=== PATIENT | male | born 1940 | race Caucasian/White ===

== ENCOUNTER 2016-07-26 10:09 | Emergency (ER) | payer MEDICARE ==
[~2016-07-26] VITALS: Ht 190.5 cm; Wt 111.1 kg
[2016-07-26 10:46] LABS: HEMOGLOBIN 14.9 g/dL (14.1-18.0); LYMPH # 1.8 K/mm3 (0.7-4.5); LYMPH % 20.3 % (10-50)
[2016-07-26 10:47] LABS: URINE BILIRUBIN - DIPSTICK NEGATIVE (NEG); URINE BLOOD 2+ (NEG)
[2016-07-26 10:50] LABS: URINE SQUAMOUS CELLS OCC #/hpf (OCC)
--- NOTE | 2016-07-26 11:09 | Emergency Room Report ---
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 N Clinical Suspician of Infection? N Mental Status: 1 - Regular (Normal Baseline) Sepsis Risk:Low Sepsis Risk Have you (or family members/close friends) recently traveled outside the [place]? N If Yes, where/when: Have you had exposure to infectious disease within the past month? N TB? Other? Specify: Comment The patient complains of pain in his RIGHT lower lumbar area for one week. No injury recalled. The pain increases with movements. Sometimes he wakes up completely pain-free but pain will increase throughout the day. No radiation. No numbness or weakness. No urination symptoms. No fever. No abdominal pain or vomiting. He has a history of kidney stones. The last was 3 years ago and it sounds as if he had lithotripsy. He is taking ibuprofen which does help. ALLERGIES Coded Allergies: No Known Allergies (07/26/16) History Medical History General CAD? No Angina: No DE: No Hypertension? Yes Hyperlipidemia? No CHF? No DVT? No PE? No COPD? No Asthma? No Anemia? No GERD? No Gastric ulcers? No GI Bleed? No Hernia? No Thyroid Problems? No Hypothyroidism? No CVA? No Seizures? No Diabetes? No Renal Insuffiency? No End Stage Renal Disease? No UTI? No Stones? Yes BPH? No GB Disease: No Nephritic Syndrome? No Asplenia? No Hepatitis? No Sickle Cell Disease? No Arthritis? No Migraines? No Cataracts? No Glaucoma? No MRSA? No HIV? No TB? No Anxiety? No Depression? No Cancer? 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 Musculoskeletal back pain Psychiatric/Neurological denies numbness, denies weakness Physical Exam Vital Signs Vital Signs Date Time Temp Pulse Resp B/P Pulse O2 O2 Flow FiO2 Ox Delivery Rate 07/26 1139 76 22 132/85 96 07/26 1031 97.8 77 22 145/79 98 07/26 1024 97.8 77 22 145/79 98 General Appearance normal appearance, WD/WN Eye Exam - bilateral eye normal exam, bilateral eye PERRL, bilateral eye EOMI Ear, Nose, Throat hearing grossly normal, normal ENT inspection Neck normal inspection, non-tender, supple, full range of motion Respiratory Status Yes: trachea midline, chest symmetrical, non tender chest. No: respiratory distress. Lung Sounds bilateral: normal breath sounds, lungs clear. 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 No Comment Patient declines pain medication Results/Orders Laboratory Tests 07/26/16 1035: Sodium 139, Potassium 3.7, Chloride 102, Carbon Dioxide 32, BUN 15, Creatinine 0.8, Estimated Creat Clear 127, Estimated GFR (MDRD) 94, Glucose 94, Calcium 8.5 , Total Bilirubin 0.5, AST 10 L, ALT 19, Alkaline Phosphatase 76, Total Protein 6.8, Albumin 3.3 L, Globulin 3.5 H, Albumin/Globulin Ratio 0.9 L, Amylase 40, Lipase 236, WBC 8.7, RBC 4.60, Hgb 14.9, Hct 43.7, MCV 94.9, RDW 12.9, Plt Count 323, MPV 5.7 L, Gran % 69.4, Gran # 6.1, Lymphocytes % 20.3, Monocytes % 7.2, Eosinophils % 2.7, Basophils % 0.4, Lymphocytes # 1.8, Monocytes # 0.6, Eosinophils # 0.2, Basophils # 0.0, PUBS MCHC 34.1, MCH 32.4 H 07/26/16 0600: Urine Color YELLOW, Urine Appearance CLEAR, Urine pH 6.0, Ur Specific [place] 1.010, Urine Protein NEGATIVE, Urine Ketones NEGATIVE, Urine Blood 2+ H, Urine Nitrate NEGATIVE, Urine Bilirubin NEGATIVE, Urine Urobilinogen 1.0, Ur Leukocyte Esterase NEGATIVE, Urine RBC 3-5, Ur Squamous Epith Cells OCC, Urine Bacteria 1+ , Urine Glucose NEGATIVE Current Medication Orders Sig/Gloria Start time Last Medication Dose Route Stop Time Status Admin Sodium Chloride 10 ML PRN PRN 07/26 1045 AC IV 07/27 1035 Sodium Chloride 10 ML PRN PRN 07/26 1045 AC IV 07/27 1036 Orders Procedure Date/time Status DIET-NOTHING BY MOUTH 07/[address] ABD/PELVIS REQ 07/26 1036 Complete IV SALINE LOCK 07/26 1036 Active URINALYSIS/COMPLETE 07/26 1036 Complete LIPASE 07/26 1036 Complete CBC WITH AUTO DIFF 07/26 1036 Complete CHEM 12 PROFILE 07/26 1036 Complete AMYLASE 07/26 1036 Complete IV SALINE LOCK 07/26 1035 Active XRAY/CT/US XRAY/CT/US CT abdomen, pelvis Comment CT scan interpreted by radiologist: No acute intra-abdominal or pelvic pathology. Nonobstructing LEFT renal calculus with stranding of the perinephric renal fat bilaterally which is nonspecific along with suspected bilateral renal cysts. Probable hepatic cyst. Thickening of the urinary bladder, nonspecific. Departure Departure Disposition DC Home or Self Care(routine) Clinical Impression Primary Impression: Low back pain Qualifiers: Chronicity: acute Back pain laterality: right Sciatica presence: without sciatica Qualified Code: M54.5 - Low back pain Condition STABLE Referrals ELDER LAU APRN (Family) Patient Instructions DI for Low Back Pain Additional Instructions Continue ibuprofen Additional instructions for BACK PAIN: See your physician as soon as possible for further evaluation. Return immediately if back pain becomes intolerable, or if fever, numbness or weakness of your legs, loss of control of your bowels or bladder. ED Critical Care Critical Care No at 1220
--- NOTE | 2016-07-26 12:04 | RADIOLOGY REPORT PS360 ---
CT ABD PELVIS W/O CONTRAST CLINICAL INDICATION: RIGHT SIDE ABDOMINAL PAIN ORDERING PHYSICIAN: Jeremiah Johnston MD PATIENT AGE: 75 years COMPARISON: None TECHNIQUE: Axial images obtained with sagittal and coronal reformats. PROCEDURE: Oral Contrast: None IV Contrast: None . FINDINGS: Images of the lung bases show coronary artery calcification. There has been prior CABG. Emphysematous changes are present. There are multiple isodense lesions of the liver the largest measuring 19 mm involving the medial segment left hepatic lobe posteriorly. These may represent hepatic cysts and may be confirmed with ultrasound. The gallbladder, spleen, and pancreas have an unremarkable unenhanced appearance. There is bilateral adrenal enlargement nonspecific. Nonobstructing stone is present in the lower pole the left kidney. There are suspected bilateral renal cysts. No obstructing ureteral calculus evident. There is mild stranding of the perinephric renal fat bilaterally. Images of the pelvis show prostate implant seeds present. There is mild thickening of the urinary bladder. No evidence of appendicitis or diverticulitis. No intestinal obstruction or free air. Atherosclerotic changes involving the aortoiliac vessels with mild ectasia of the iliac arteries. No acute bony anomalies. IMPRESSION: 1. No acute intra-abdominal or pelvic pathology. 2. Nonobstructing left renal calculus with stranding of the perinephric renal fat bilaterally which is nonspecific along with suspected bilateral renal cysts. 3. Probable hepatic cyst. 4. Thickening of the urinary bladder nonspecific.
[2016-07-26 12:22] VITALS: BP 119/79
== END 2016-07-26 12:25 | disposition home or self-care (01) ==
LOC: ER 10:09
PROVIDERS: Emergency Medicine
DX: M54.5 Low back pain (principal); I10 Essential (primary) hypertension; Z72.0 Tobacco use

== ENCOUNTER → 2017-05-16 | Outpatient (CLI) | payer MEDICARE ==
[2017-05-16 15:54] LABS: LYMPH # 1.7 K/mm3 (0.7-4.5); LYMPH % 20.4 % (10-50)
[2017-05-16 16:19] LABS: HEMOGLOBIN 15.3 g/dL (14.1-18.0)
[2017-05-16 16:25] LABS: BUN 14 mg/dL (7-18)
[2017-05-16 16:27] LABS: GFR (ESTIMATED) 82 ML/MIN (>60)
[2017-05-18 05:40] LABS: PSA, Free <0.01 ng/mL; Prostate Specific Ag <0.1 ng/mL (0.0-4.0)
== END ==
LOC: LAB 15:04
PROVIDERS: Nurse Practitioner Family
DX: R53.83 Other fatigue (principal); E78.5 Hyperlipidemia, unspecified; C61 Malignant neoplasm of prostate